=== PATIENT | female | born 1995 | race Caucasian/White ===

== ENCOUNTER → 2021-04-27 09:15 | Outpatient (BNVA) | payer BC, SELFPAY | PROVIDERS: Visit Provider Nurse Practitioner Women's Health | DX: Z01.419 Encounter for gynecological examination (general) (routine) without abnormal findings (principal); E01.0 Iodine-deficiency related diffuse (endemic) goiter; N92.1 Excessive and frequent menstruation with irregular cycle; Z97.5 Presence of (intrauterine) contraceptive device | CPT/HCPCS: 84439; 84443; 88175 ==

== ENCOUNTER → 2022-11-11 12:10 | Outpatient (BNVA) | payer BC, SELFPAY | PROVIDERS: Visit Provider Nurse Practitioner Women's Health | DX: E04.1 Nontoxic single thyroid nodule (principal) | CPT/HCPCS: 84443 ==